=== PATIENT | male | born 1965 | race Caucasian/White ===

== ENCOUNTER 2018-03-28 08:34 | Emergency (ER) | payer BC, OTHER ==
--- NOTE | 2018-03-28 09:29 | EDM.PDOC ---
ED HPI GENERAL MEDICAL PROBLEM - General Chief Complaint: Cardiovascular Problem Stated Complaint: ELEVATED HEART RATE/DIZZINESS Time Seen by Provider: 03/28/18 09:15 Source of Information: Reports: Patient History Limitations: Reports: No Limitations - History of Present Illness INITIAL COMMENTS - FREE TEXT/NARRATIVE: 52-year-old male with intermittent chest tightness and shortness of breath through the weekend called the clinic this morning to discuss his symptoms and they sent him to the emergency room. He feels fine today. He did check his pulse at work and it was 102 and he thought that was "real fast". He does have a chronic mild chest pain which has been worked up in the past and nothing has been found. He has not had any cardiac testing in several years. He has not had fevers or chills, cough, nausea or vomiting or diaphoresis. Onset: Unknown/Unsure Severity: Mild Associated Symptoms: Reports: Shortness of Breath, Other (Feels palpitations, feels his heart is beating too fast). Denies: Fever/Chills, Headaches, Malaise , Nausea/Vomiting, Weakness - Related Data Allergies Allergy/AdvReac Type Severity Reaction Status Date / Time No Known Allergies Allergy Verified 03/28/18 09:00 Home Meds: Home Meds Albuterol [Ventolin HFA] 2 puff INH ASDIRECTED PRN 03/28/18 [History] Fluticasone Propionate [Flonase Allergy Relief] 1 spray TOP DAILY 03/28/18 [ History] Lisinopril 10 mg PO DAILY 03/28/18 [History] Past Medical History HEENT History: Reports: Allergic Rhinitis Cardiovascular History: Reports: Angina, Hypertension Other Cardiovascular History: Stress test 10 years ago -good Respiratory History: Reports: Sleep Apnea Other Respiratory History: c-pap Gastrointestinal History: Reports: Cholelithiasis Musculoskeletal History: Reports: Fracture Endocrine/Metabolic History: Reports: Obesity/BMI 30+ - Past Surgical History HEENT Surgical History: Reports: Oral Surgery GI Surgical History: Reports: Cholecystectomy, Hernia Repair/Other Social & Family History - Tobacco Use Smoking Status *Q: Never Smoker - Caffeine Use Caffeine Use: Reports: Soda - Recreational Drug Use Recreational Drug Use: No ED ROS GENERAL - Review of Systems Review Of Systems: See Below Constitutional: Denies: Fever, Chills, Malaise HEENT: Reports: No Symptoms Respiratory: Reports: Shortness of Breath (Seems to be somewhat worse with activity) Cardiovascular: Reports: Palpitations Endocrine: Denies: Fatigue GI/Abdominal: Denies: Abdominal Pain, Nausea, Vomiting : Reports: No Symptoms Skin: Reports: No Symptoms Neurological: Reports: Dizziness. Denies: Headache Psychiatric: Reports: No Symptoms ED EXAM, GENERAL - Physical Exam Exam: See Below Exam Limited By: No Limitations General Appearance: Alert, No Apparent Distress Eye Exam: Bilateral Eye: Normal Inspection Head: Atraumatic Respiratory/Chest: No Respiratory Distress, Lungs Clear Cardiovascular: Regular Rate, Rhythm GI/Abdominal: Soft, Other (Obese) Extremities: Pedal Edema (Trace symmetric bilateral lower extremity edema) Neurological: Alert, Oriented Psychiatric: Normal Affect, Normal Mood Course - Vital Signs Last Recorded V/S: Last Vital Signs Temp 97.6 F 03/28/18 09:07 Pulse 55 L 03/28/18 09:07 Resp 18 03/28/18 09:07 BP 110/44 L 03/28/18 09:07 Pulse Ox 97 03/28/18 09:07 - Orders/Labs/Meds Orders: Active Orders 24 hr Category Date Time Status EKG Documentation Completion [RC] ASDIRECTED Care 03/28/18 09:25 Active EKG 12 Lead [EK] Routine Ther 03/28/18 09:25 Ordered Labs: Laboratory Tests 03/28/18 03/28/18 Range/Units 09:36 09:36 WBC 5.7 (4.5-11.0) K/uL RBC 5.05 (4.30-5.90) M/uL Hgb 14.3 (12.0-15.0) g/dL Hct 44.3 (40.0-54.0) % MCV 88 (80-98) fL MCH 28 (27-31) pg MCHC 32 (32-36) % Plt Count 206 (150-400) K/uL Neut % (Auto) 67 H (36-66) % Lymph % (Auto) 17 L (24-44) % Dickey % (Auto) 11 H (2-6) % Eos % (Auto) 5 H (2-4) % Baso % (Auto) 1 (0-1) % Sodium 141 (140-148) mmol/L Potassium 4.2 (3.6-5.2) mmol/L Chloride 106 (100-108) mmol/L Carbon Dioxide 26 (21-32) mmol/L Anion Gap 9.0 (5.0-14.0) mmol/L BUN 18 (7-18) mg/dL Creatinine 1.2 (0.8-1.3) mg/dL Est Cr Clr Drug Dosing 76.69 mL/min Estimated GFR (MDRD) > 60 (>60) Glucose 113 H (74-106) mg/dL Calcium 9.2 (8.5-10.1) mg/dL Troponin I < 0.017 (0.000-0.056) ng/mL - Re-Assessments/Exams Free Text/Narrative Re-Assessment/Exam: 03/28/18 09:34 Patient was placed on cardiac monitoring which showed normal vitals and a sinus bradycardia of 55-60. EKG was done, CBC, BMP and troponin were obtained. 03/28/18 10:27 EKG and labs were reassuring. Patient remained asymptomatic while in the emergency room. I discussed his case with his primary provider Dr. Hdez. 03/28/18 10:36 A Cardiolite stress test was scheduled with results and follow-up going to Dr. Hdez. Departure - Departure Time of Disposition: 10:51 Disposition: Home, Self-Care 01 Condition: Good Clinical Impression: Dizziness, Shortness of breath Instructions: Shortness of Breath, Adult, [id number] Referrals: Adalberto Hdez MD [Primary Care Provider] - Forms: ED Department Discharge Care Plan Goals: Continue your current medications, and performed Cardiolite stress test as scheduled. Return anytime if worsening or concerns. - My Orders Last 24 Hours: My Active Orders 03/28/18 09:25 EKG Documentation Completion [RC] ASDIRECTED EKG 12 Lead [EK] Routine - Assessment/Plan Last 24 Hours: My Active Orders 03/28/18 09:25 EKG Documentation Completion [RC] ASDIRECTED EKG 12 Lead [EK] Routine
== END 2018-03-28 10:51 | disposition home or self-care (01) ==
LOC: JP.ED 08:34
DX: R06.02 Shortness of breath (principal); R42 Dizziness and giddiness; I10 Essential (primary) hypertension; E66.9 Obesity, unspecified; Z79.899 Other long term (current) drug therapy
CPT/HCPCS: 36415; 80048; 84484; 85025; 93005; 99285-25

== ENCOUNTER 2019-03-13 20:54 | Emergency (ER) | payer OTHER ==
[2019-03-13] MEDS ORDERED: Bacitracin Oint 1 GM U/D Packet TOP ONE (21:16)
[2019-03-13] MEDS ORDERED: Diphtheria,Pertussis(Acell),Tetanus Vaccine 0.5 ML SDV IM ONE (21:31)
[2019-03-13] MEDS ORDERED: Diphtheria,Pertussis(Acell),Tetanus Vaccine 0.5 ML SDV ONE (21:34)
--- NOTE | 2019-03-13 21:40 | EDM.PDOC ---
ED HPI GENERAL MEDICAL PROBLEM - General Stated Complaint: CUT LEFT POINTER FINGER Time Seen by Provider: 03/13/19 21:00 Source of Information: Reports: Patient History Limitations: Reports: No Limitations - History of Present Illness INITIAL COMMENTS - FREE TEXT/NARRATIVE: 53-year-old male with a laceration to the left index finger. He was moving an appliance when it caught his finger sustaining a laceration. It happened within the last hour. No other injury. Onset: Sudden Duration: Hour(s): (Within the last few hours) Location: Reports: Upper Extremity, Left Associated Symptoms: Reports: No Other Symptoms - Related Data Allergies Allergy/AdvReac Type Severity Reaction Status Date / Time No Known Allergies Allergy Verified 03/13/19 21:25 Home Meds: Home Meds Albuterol [Ventolin HFA] 2 puff INH ASDIRECTED PRN 03/28/18 [History] Fluticasone Propionate [Flonase Allergy Relief] 1 spray TOP DAILY 03/28/18 [ History] Losartan Potassium 03/13/19 [History] Past Medical History HEENT History: Reports: Allergic Rhinitis Cardiovascular History: Reports: Angina, Hypertension Other Cardiovascular History: Stress test 10 years ago -good Respiratory History: Reports: Sleep Apnea Other Respiratory History: c-pap Gastrointestinal History: Reports: Cholelithiasis Musculoskeletal History: Reports: Fracture Endocrine/Metabolic History: Reports: Obesity/BMI 30+ - Past Surgical History HEENT Surgical History: Reports: Oral Surgery GI Surgical History: Reports: Cholecystectomy, Hernia Repair/Other Social & Family History - Tobacco Use Smoking Status *Q: Never Smoker - Caffeine Use Caffeine Use: Reports: Soda ED ROS GENERAL - Review of Systems Review Of Systems: See Below Constitutional: Denies: Fever, Chills Respiratory: Denies: Shortness of Breath Neurological: Denies: Paresthesia ED EXAM, SKIN/RASH Exam: See Below Exam Limited By: No Limitations General Appearance: Alert, No Apparent Distress Head: Atraumatic Respiratory/Chest: No Respiratory Distress Extremities: Other (Exam is otherwise limited to the left hand. The patient has a 1.5 cm laceration, transverse, across the dorsal aspect of the index finger between the MP and PIP joints. He has full range of motion and normal strength) Neurological: Alert, Oriented Course - Vital Signs Last Recorded V/S: Last Vital Signs Temp 96.0 F 03/13/19 21:31 Pulse 64 03/13/19 21:31 Resp 16 03/13/19 21:31 BP 142/83 H 03/13/19 21:31 Pulse Ox 97 03/13/19 21:31 - Orders/Labs/Meds Orders: Active Orders 24 hr Category Date Time Status Vaccines to be Administered [RC] PER UNIT ROUTINE Care 03/13/19 21:32 Active Meds: Medications Discontinued Medications Generic Name Dose Route Start Last Admin Trade Name Star PRN Reason Stop Dose Admin Bacitracin 1 dose 03/13/19 21:16 03/13/19 21:31 Bacitracin Oint 1 Gm TOP 03/13/19 21:17 1 dose ONETIME ONE Administration Diphtheria/Tetanus/Acell Pertussis 0.5 ml 03/13/19 21:31 03/13/19 21:36 Adacel IM 03/13/19 21:32 0.5 ml .ONCE ONE Administration Diphtheria/Tetanus/Acell Pertussis Confirm 03/13/19 21:34 Adacel Administered 03/13/19 21:35 Dose 0.5 ml .ROUTE .STK-MED ONE Lidocaine HCl 5 ml 03/13/19 21:16 03/13/19 21:31 Xylocaine-Mpf 1% INJECT 03/13/19 21:17 5 ml ONETIME ONE Administration - Re-Assessments/Exams Free Text/Narrative Re-Assessment/Exam: 03/13/19 21:40 The area is infiltrated with 1% lidocaine, cleansed thoroughly with saline and closed with 3 4-0 Ethilon sutures. He was given a TDap booster. Topical bacitracin and a Band-Aid was applied and the sutures can be removed in 8 days. Departure - Departure Time of Disposition: 22:25 Disposition: Home, Self-Care 01 Condition: Good Clinical Impression: Finger laceration Finger laceration Qualifiers: Encounter type: initial encounter Finger: index finger Damage to nail status: without damage Foreign body presence: without foreign body Laterality: left Qualified Code(s): S61.211A - Laceration without foreign body of left index finger without damage to nail, initial encounter - Discharge Information Instructions: Laceration Care, Adult Referrals: Adalberto Hdez MD [Primary Care Provider] - Forms: ED Department Discharge Care Plan Goals: Keep wound covered and clean while healing. Activity as tolerated and sutures can be removed in 8 days. Return sooner if concerns of infection or not healing satisfactorily. - My Orders Last 24 Hours: My Active Orders 03/13/19 21:32 Vaccines to be Administered [RC] PER UNIT ROUTINE - Assessment/Plan Last 24 Hours: My Active Orders 03/13/19 21:32 Vaccines to be Administered [RC] PER UNIT ROUTINE
== END 2019-03-13 22:26 | disposition home or self-care (01) ==
LOC: JP.ED 20:54
DX: S61.211A Laceration without foreign body of left index finger without damage to nail, initial encounter (principal); I10 Essential (primary) hypertension; Z79.899 Other long term (current) drug therapy; Z23 Encounter for immunization; W23.1XXA Caught, crushed, jammed, or pinched between stationary objects, initial encounter
CPT/HCPCS: 12001; 90471; 90715; 99282; J2001